=== PATIENT | male | born 1970 | race Caucasian/White ===

== ENCOUNTER 2019-03-26 15:53 | Inpatient (IN) ==
--- NOTE | 2019-03-26 16:24 | Emergency Department Note ---
Disposition Clinical Impression: Suicidal ideation Disposition: Admitted As Inpatient Condition: Good Psych HPI - General Chief Complaint: ED Psychiatric Symptoms Stated Complaint: SI Time Seen by Provider: 03/26/19 16:04 Source: patient - Related Data Home Medications Medication Instructions Recorded Confirmed Albuterol Sulfate [Albuterol 2 puff IH Q4HR PRN 03/26/19 03/26/19 Inhaler] Amitriptyline [Elavil] 25 mg PO HS 03/26/19 03/26/19 BuPROPion SR (12 HR) [Wellbutrin 150 mg PO BID 03/26/19 03/26/19 SR] Gabapentin [Neurontin] 300 mg PO TID 03/26/19 03/26/19 Meloxicam [Mobic] 7.5 mg PO DAILY PRN 03/26/19 03/26/19 Allergies Allergy/AdvReac Type Severity Reaction Status Date / Time No Known Allergies Allergy Verified 01/01/19 13:10 Past Medical History - Past Medical History Medical history: Reports: other Surgical history: Reports: no surgical history Psychiatric history: Reports: depression - Social History Smoking Status: Current every day smoker Smokeless Tobacco Status: No Alcohol use: Reports: occasionally Drug use: Reports: none Physical Exam - General Limitations: no limitations General appearance: alert, in no apparent distress Course Vital Signs Temperature 98.2 F 03/26/19 15:55 Pulse Rate 115 03/26/19 15:55 Respiratory Rate 20 03/26/19 15:55 Blood Pressure 142/87 03/26/19 15:55 O2 Sat by Pulse Oximetry 97 03/26/19 15:55 Temperature 97.6 F 03/27/19 20:44 Pulse Rate 81 03/27/19 20:44 Respiratory Rate 16 03/27/19 20:44 Blood Pressure 121/80 03/27/19 20:44 O2 Sat by Pulse Oximetry 97 03/27/19 20:44 Oxygen Delivery Oxygen Delivery Room Air Psych - Lab Data Result diagrams: 03/26/19 16:25 03/26/19 16:25 Lab Results 03/26/19 03/26/19 03/26/19 Range/Units 16:25 16:25 16:30 WBC 14.8 H (4.3-11.1) K/mcL RBC 4.91 (4.19-5.50) M/mcL Hgb 15.3 (12.9-16.9) g/dL Hct 45.2 (37.5-50.1) % MCV 92.1 (83.0-100.0) fL MCH 31.2 (28.0-33.3) pg MCHC 33.8 (31.6-35.5) g/dL RDW 13.1 (11.5-14.5) % Plt Count 344 (140-400) K/mcL MPV 12.2 (9.4-12.4) fL Immature Gran % 0.3 (0-4) % Seg Neutrophils % 61.1 % Lymphocytes % 29.2 % Monocytes % 6.0 % Eosinophils % 2.4 % Basophils % 1.0 % Neutrophils # 9.0 H (1.6-8.9) K/mcL Lymphocytes # 4.3 (0.6-4.6) K/mcL Monocytes # 0.9 (0.0-1.3) K/mcL Eosinophils # 0.4 (0.0-0.6) K/mcL Basophils # 0.2 (0.0-0.2) K/mcL Sodium 139 (136-145) mEq/L Potassium 3.6 (3.5-5.1) mEq/L Chloride 104 (98-107) mEq/L Carbon Dioxide 26 (23-29) mEq/L BUN 13 (6-20) mg/dL Creatinine 0.97 (0.70-1.30) mg/dL Est GFR ( Amer) > 60 (> 60) Est GFR (Non-Af Amer) > 60 (> 60) BUN/Creatinine Ratio 13 (6-26) Glucose 95 (70-105) mg/dL Calculated Osmolality 288 (280-300) Calcium 10.0 (8.6-10.3) mg/dL Total Bilirubin 0.7 (0.3-1.0) mg/dL Direct Bilirubin 0.1 (0.0-0.2) mg/dL Indirect Bilirubin 0.6 (0.0-1.2) mg/dL AST 18 (13-39) Units/L ALT 13 (7-52) Units/L Alkaline Phosphatase 56 (34-104) Units/L Serum Total Protein 7.8 (6.4-8.9) g/dL Albumin 4.8 (3.5-5.7) g/dL Globulin 3.0 (2.4-3.5) g/dL Albumin/Globulin Ratio 1.6 (1.1-2.2) Urine Color Yellow (Yellow) Urine Clarity Clear (Clear) Urine pH 5.5 (5.0-8.0) pH Units Ur Specific [place] 1.020 (1.010-1.025) Urine Protein Negative (Neg-Trace) mg/dL Urine Glucose (UA) Normal (Normal) mg/dL Urine Ketones Negative (Negative) mg/dL Urine Blood Negative (Negative) Urine Nitrite Negative (Negative) Urine Bilirubin Negative (Negative) Urine Urobilinogen Normal (Normal) mg/dL Ur Leukocyte Esterase Negative (Negative) Salicylates < 2.5 L (15.0-30.0) mg/dL Urine Opiates Screen (Trihln=667) ng/mL Acetaminophen < 10 L (10-20) mcg/mL Ur Barbiturates Screen (Crdvev=102) ng/mL Ur Phencyclidine Scrn (Cutoff=25) ng/mL Ur Amphetamines Screen (Najeju=4787) ng/mL U Benzodiazepines Scrn (Vglweo=406) ng/mL Urine Cocaine Screen (Cutoff= 300) ng/mL U Marijuana (THC) Screen (Cutoff = 50) ng/mL Ur Drug Screen Interp Ethyl Alcohol < 10 (Less than 10) mg/dL 03/26/19 Range/Units 16:30 WBC (4.3-11.1) K/mcL RBC (4.19-5.50) M/mcL Hgb (12.9-16.9) g/dL Hct (37.5-50.1) % MCV (83.0-100.0) fL MCH (28.0-33.3) pg MCHC (31.6-35.5) g/dL RDW (11.5-14.5) % Plt Count (140-400) K/mcL MPV (9.4-12.4) fL Immature Gran % (0-4) % Seg Neutrophils % % Lymphocytes % % Monocytes % % Eosinophils % % Basophils % % Neutrophils # (1.6-8.9) K/mcL Lymphocytes # (0.6-4.6) K/mcL Monocytes # (0.0-1.3) K/mcL Eosinophils # (0.0-0.6) K/mcL Basophils # (0.0-0.2) K/mcL Sodium (136-145) mEq/L Potassium (3.5-5.1) mEq/L Chloride (98-107) mEq/L Carbon Dioxide (23-29) mEq/L BUN (6-20) mg/dL Creatinine (0.70-1.30) mg/dL Est GFR ( Amer) (> 60) Est GFR (Non-Af Amer) (> 60) BUN/Creatinine Ratio (6-26) Glucose (70-105) mg/dL Calculated Osmolality (280-300) Calcium (8.6-10.3) mg/dL Total Bilirubin (0.3-1.0) mg/dL Direct Bilirubin (0.0-0.2) mg/dL Indirect Bilirubin (0.0-1.2) mg/dL AST (13-39) Units/L ALT (7-52) Units/L Alkaline Phosphatase (34-104) Units/L Serum Total Protein (6.4-8.9) g/dL Albumin (3.5-5.7) g/dL Globulin (2.4-3.5) g/dL Albumin/Globulin Ratio (1.1-2.2) Urine Color (Yellow) Urine Clarity (Clear) Urine pH (5.0-8.0) pH Units Ur Specific [place] (1.010-1.025) Urine Protein (Neg-Trace) mg/dL Urine Glucose (UA) (Normal) mg/dL Urine Ketones (Negative) mg/dL Urine Blood (Negative) Urine Nitrite (Negative) Urine Bilirubin (Negative) Urine Urobilinogen (Normal) mg/dL Ur Leukocyte Esterase (Negative) Salicylates (15.0-30.0) mg/dL Urine Opiates Screen Negative (Faojss=741) ng/mL Acetaminophen (10-20) mcg/mL Ur Barbiturates Screen Negative (Xovwzl=570) ng/mL Ur Phencyclidine Scrn Negative (Cutoff=25) ng/mL Ur Amphetamines Screen Negative (Filcmi=9373) ng/mL U Benzodiazepines Scrn Negative (Bijblk=412) ng/mL Urine Cocaine Screen Negative (Cutoff= 300) ng/mL U Marijuana (THC) Screen Negative (Cutoff = 50) ng/mL Ur Drug Screen Interp See Below Ethyl Alcohol (Less than 10) mg/dL Psychiatric Medical Clearance - Medical Clearance Checklist Medical History: No Social History Section defined Current Vitals: Last Vital Signs Temp 97.6 F 03/27/19 20:44 Pulse 81 03/27/19 20:44 Resp 16 03/27/19 20:44 BP 121/80 03/27/19 20:44 Pulse Ox 97 03/27/19 20:44 Abnormal Labs: Abnormal lab results WBC 14.8 K/mcL (4.3-11.1) H 03/26/19 16:25 9.0 K/mcL (1.6-8.9) H 03/26/19 16:25 Salicylates < 2.5 mg/dL (15.0-30.0) L 03/26/19 16:25 Acetaminophen < 10 mcg/mL (10-20) L 03/26/19 16:25 Statement of Medical Clearance: I have evaluated the patient, reviewed diagnostic information, and certify that the patient's medical condition is sufficiently stable that transfer to the psychiatric unit does not pose a significant risk of deterioration. Attestation Statement - Attestation Attestation: Resident Attestation: I examined this patient and my medical decision making was reviewed with the Resident Physician. I agree with the documented findings, disposition and treatment plan as described except to the extent set forth below. We independently had [id number] contact with the patient. Patient presented for evaluation of SI. Patient states he has not slept in 3 days. Patient is undergoing a divorce, kids will talk to him, patient states that he is lost his truck and is about to be homeless. Patient has been having thoughts of wanting to kill himself including with either guns or pills. General appearance: NAD, conversant Eyes: anicteric sclerae, moist conjunctivae HENT: Atraumatic; oropharynx clear with moist mucous membranes Neck: Normal appearance; Trachea midline Chest: Symmetrical chest rise; No respiratory distress Extremities: No peripheral edema or extremity tenderness Skin: Normal temperature, turgor and texture; no rash, ulcers or subcutaneous nodules Psych: Appropriate mood and affect Neuro: Awake and alert
--- NOTE | 2019-03-26 16:25 | Emergency Department Note ---
Disposition Clinical Impression: Suicidal ideation Disposition: Admitted As Inpatient Condition: Good Referrals: NONE,PCP [Primary Care Provider] - Time of Disposition: 20:35 Psych HPI - General Chief Complaint: ED Psychiatric Symptoms Stated Complaint: SI Time Seen by Provider: 03/26/19 16:04 Source: patient Mode of arrival: ambulatory Limitations: no limitations Nursing Notes Reviewed: Yes Vital Signs Reviewed: Yes - History of Present Illness HPI Narrative: 48-year-old male presents to the emergency department for suicidal ideations. Patient states a few months ago his filed for divorce after he got her cheating with someone else. There were now undergoing a custody fuentes as well said since then he has been very depressed. He has lost everything including his job money in-house. Partially 2 weeks ago he said he took an unknown amount of pills unknown exactly what pill was preceded his vomiting back up and had no ill effects from that. He was not seen in the hospital after that event. Her last few days he has became more depressed and having more suicidal thoughts were says he is deciding whether or not he wants to take more pills or shoot himself in the head. Did have access to a handgun but his brother came to his house yesterday and took the gun away. He promises brother that he would come here to be evaluated as they felt like he is not in a normal state of mind and needs some help. Patient agrees with that as well. He does not have any homicidal wrist. Patient otherwise has no other complaints at this time. This again with N for pain otherwise no other medications. - Related Data Home Medications Medication Instructions Recorded Confirmed Albuterol Sulfate [Albuterol 2 puff IH Q4HR PRN 03/26/19 03/26/19 Inhaler] Amitriptyline [Elavil] 25 mg PO HS 03/26/19 03/26/19 BuPROPion SR (12 HR) [Wellbutrin 150 mg PO BID 03/26/19 03/26/19 SR] Gabapentin [Neurontin] 300 mg PO TID 03/26/19 03/26/19 Meloxicam [Mobic] 7.5 mg PO DAILY PRN 03/26/19 03/26/19 Allergies Allergy/AdvReac Type Severity Reaction Status Date / Time No Known Allergies Allergy Verified 01/01/19 13:10 All systems ED: reviewed and negative except as stated. Review of Systems: As Per HPI Past Medical History - Past Medical History Attestation: Yes The following information was validated with the patient. Source: patient Medical history: Reports: other Surgical history: Reports: no surgical history Psychiatric history: Reports: depression - Social History Smoking Status: Current every day smoker Smokeless Tobacco Status: No Alcohol use: Reports: occasionally Drug use: Reports: none Physical Exam - General Limitations: no limitations General appearance: alert, in no apparent distress - Head Head exam: atraumatic, normocephalic, normal inspection - Eye Eye exam: Present: normal appearance, PERRL, EOMI - ENT ENT exam: normal exam, normal oropharynx, mucous membranes moist - Neck Neck exam: Present: normal inspection, full ROM, trachea midline - Chest Chest inspection: Present: normal inspection, symmetric chest wall rise - Respiratory Respiratory exam: Present: normal lung sounds bilaterally - Cardiovascular Cardiovascular exam: Present: regular rate, normal rhythm, normal heart sounds - Abdominal Exam Abdominal exam: Present: soft, Non-Tender, normal bowel sounds. Absent: tenderness, distention, guarding, rebound, rigidity - Extremities Exam Extremities exam: Present: normal inspection, full ROM. Absent: tenderness, pedal edema - Back Exam Back exam: Present: normal inspection, full ROM. Absent: tenderness - Neurological Exam Neurological exam: Present: alert, oriented X3 - Psychiatric Psychiatric exam: Present: suicidal ideation. Absent: homicidal ideation - Skin Skin exam: Present: warm, dry, intact, normal color Course Course Narrative: Will get psychiatric medical clearance. If patient is medically cleared we will contact the psychiatric unit to come evaluate patient for further disposition and plan. Patient stable at this time. He is pink slipped. Vital Signs Temperature 98.2 F 03/26/19 15:55 Pulse Rate 115 03/26/19 15:55 Respiratory Rate 20 03/26/19 15:55 Blood Pressure 142/87 03/26/19 15:55 O2 Sat by Pulse Oximetry 97 03/26/19 15:55 Temperature 98.2 F 03/26/19 20:23 Pulse Rate 80 03/26/19 20:23 Respiratory Rate 16 03/26/19 20:23 Blood Pressure 125/88 03/26/19 20:23 O2 Sat by Pulse Oximetry 97 03/26/19 20:23 Oxygen Delivery Oxygen Delivery Room Air Psych - MDM Narrative Medical decision making narrative: Patient came here for suicidal ideations. Patient was originally medically cleared but he did have history of really pneumothorax a few months ago which did have treatment for it. Chest x-ray showed possible pleural effusion so we did get a CT of the chest which showed change in architecture in the right upper lobe but no signs of pneumothorax or effusions at this time. Patient does need to follow-up with his junior systems analyst in the outpatient setting. He was never hypoxic or tachycardic while here. He does not have any shortness of breath outside of his normal. Patient was medically cleared and psychiatry saw the patient and recommended admission for further evaluation. Patient is admitted to [facility] in stable condition. Chest X-Ray 03/26/19 17:05 IMPRESSION: Mild right pleural effusion versus pleural thickening. No conclusive pneumothorax identified. With continued clinical concern, advise CT for further evaluation. D/ / Layo Guerrero MD / Layo Guerrero MD Interpreting Provider: Laoy Guerrero MD Chest CT 03/26/19 18:16 IMPRESSION: No evidence of recurrent pneumothorax. New postsurgical changes in the right upper lung. D/ / Vamshi Barreto MD / Vamshi Barreto MD Interpreting Provider: Vamshi Barreto MD - Lab Data Result diagrams: 03/26/19 16:25 03/26/19 16:25 Lab Results 03/26/19 03/26/19 03/26/19 Range/Units 16:25 16:25 16:30 WBC 14.8 H (4.3-11.1) K/mcL RBC 4.91 (4.19-5.50) M/mcL Hgb 15.3 (12.9-16.9) g/dL Hct 45.2 (37.5-50.1) % MCV 92.1 (83.0-100.0) fL MCH 31.2 (28.0-33.3) pg MCHC 33.8 (31.6-35.5) g/dL RDW 13.1 (11.5-14.5) % Plt Count 344 (140-400) K/mcL MPV 12.2 (9.4-12.4) fL Immature Gran % 0.3 (0-4) % Seg Neutrophils % 61.1 % Lymphocytes % 29.2 % Monocytes % 6.0 % Eosinophils % 2.4 % Basophils % 1.0 % Neutrophils # 9.0 H (1.6-8.9) K/mcL Lymphocytes # 4.3 (0.6-4.6) K/mcL Monocytes # 0.9 (0.0-1.3) K/mcL Eosinophils # 0.4 (0.0-0.6) K/mcL Basophils # 0.2 (0.0-0.2) K/mcL Sodium 139 (136-145) mEq/L Potassium 3.6 (3.5-5.1) mEq/L Chloride 104 (98-107) mEq/L Carbon Dioxide 26 (23-29) mEq/L BUN 13 (6-20) mg/dL Creatinine 0.97 (0.70-1.30) mg/dL Est GFR ( Amer) > 60 (> 60) Est GFR (Non-Af Amer) > 60 (> 60) BUN/Creatinine Ratio 13 (6-26) Glucose 95 (70-105) mg/dL Calculated Osmolality 288 (280-300) Calcium 10.0 (8.6-10.3) mg/dL Total Bilirubin 0.7 (0.3-1.0) mg/dL Direct Bilirubin 0.1 (0.0-0.2) mg/dL Indirect Bilirubin 0.6 (0.0-1.2) mg/dL AST 18 (13-39) Units/L ALT 13 (7-52) Units/L Alkaline Phosphatase 56 (34-104) Units/L Serum Total Protein 7.8 (6.4-8.9) g/dL Albumin 4.8 (3.5-5.7) g/dL Globulin 3.0 (2.4-3.5) g/dL Albumin/Globulin Ratio 1.6 (1.1-2.2) Urine Color Yellow (Yellow) Urine Clarity Clear (Clear) Urine pH 5.5 (5.0-8.0) pH Units Ur Specific [place] 1.020 (1.010-1.025) Urine Protein Negative (Neg-Trace) mg/dL Urine Glucose (UA) Normal (Normal) mg/dL Urine Ketones Negative (Negative) mg/dL Urine Blood Negative (Negative) Urine Nitrite Negative (Negative) Urine Bilirubin Negative (Negative) Urine Urobilinogen Normal (Normal) mg/dL Ur Leukocyte Esterase Negative (Negative) Salicylates < 2.5 L (15.0-30.0) mg/dL Urine Opiates Screen (Kpohbo=190) ng/mL Acetaminophen < 10 L (10-20) mcg/mL Ur Barbiturates Screen (Nbowpj=786) ng/mL Ur Phencyclidine Scrn (Cutoff=25) ng/mL Ur Amphetamines Screen (Wqxvyq=1133) ng/mL U Benzodiazepines Scrn (Kluglk=123) ng/mL Urine Cocaine Screen (Cutoff= 300) ng/mL U Marijuana (THC) Screen (Cutoff = 50) ng/mL Ur Drug Screen Interp Ethyl Alcohol < 10 (Less than 10) mg/dL 03/26/19 Range/Units 16:30 WBC (4.3-11.1) K/mcL RBC (4.19-5.50) M/mcL Hgb (12.9-16.9) g/dL Hct (37.5-50.1) % MCV (83.0-100.0) fL MCH (28.0-33.3) pg MCHC (31.6-35.5) g/dL RDW (11.5-14.5) % Plt Count (140-400) K/mcL MPV (9.4-12.4) fL Immature Gran % (0-4) % Seg Neutrophils % % Lymphocytes % % Monocytes % % Eosinophils % % Basophils % % Neutrophils # (1.6-8.9) K/mcL Lymphocytes # (0.6-4.6) K/mcL Monocytes # (0.0-1.3) K/mcL Eosinophils # (0.0-0.6) K/mcL Basophils # (0.0-0.2) K/mcL Sodium (136-145) mEq/L Potassium (3.5-5.1) mEq/L Chloride (98-107) mEq/L Carbon Dioxide (23-29) mEq/L BUN (6-20) mg/dL Creatinine (0.70-1.30) mg/dL Est GFR ( Amer) (> 60) Est GFR (Non-Af Amer) (> 60) BUN/Creatinine Ratio (6-26) Glucose (70-105) mg/dL Calculated Osmolality (280-300) Calcium (8.6-10.3) mg/dL Total Bilirubin (0.3-1.0) mg/dL Direct Bilirubin (0.0-0.2) mg/dL Indirect Bilirubin (0.0-1.2) mg/dL AST (13-39) Units/L ALT (7-52) Units/L Alkaline Phosphatase (34-104) Units/L Serum Total Protein (6.4-8.9) g/dL Albumin (3.5-5.7) g/dL Globulin (2.4-3.5) g/dL Albumin/Globulin Ratio (1.1-2.2) Urine Color (Yellow) Urine Clarity (Clear) Urine pH (5.0-8.0) pH Units Ur Specific [place] (1.010-1.025) Urine Protein (Neg-Trace) mg/dL Urine Glucose (UA) (Normal) mg/dL Urine Ketones (Negative) mg/dL Urine Blood (Negative) Urine Nitrite (Negative) Urine Bilirubin (Negative) Urine Urobilinogen (Normal) mg/dL Ur Leukocyte Esterase (Negative) Salicylates (15.0-30.0) mg/dL Urine Opiates Screen Negative (Soxfjj=662) ng/mL Acetaminophen (10-20) mcg/mL Ur Barbiturates Screen Negative (Ayfvkh=654) ng/mL Ur Phencyclidine Scrn Negative (Cutoff=25) ng/mL Ur Amphetamines Screen Negative (Zmffvj=0219) ng/mL U Benzodiazepines Scrn Negative (Jywfjy=533) ng/mL Urine Cocaine Screen Negative (Cutoff= 300) ng/mL U Marijuana (THC) Screen Negative (Cutoff = 50) ng/mL Ur Drug Screen Interp See Below Ethyl Alcohol (Less than 10) mg/dL Psychiatric Medical Clearance - Medical Clearance Checklist Medical History: No Social History Section defined Current Vitals: Last Vital Signs Temp 98.2 F 03/26/19 20:23 Pulse 80 03/26/19 20:23 Resp 16 03/26/19 20:23 BP 125/88 03/26/19 20:23 Pulse Ox 97 03/26/19 20:23 Psychiatric Lab Panel: Drug Levels and Toxicity 03/26/19 03/26/19 16:25 16:30 Urine Opiates Screen Negative Acetaminophen < 10 L Ur Barbiturates Screen Negative Ur Phencyclidine Scrn Negative Ur Amphetamines Screen Negative U Benzodiazepines Scrn Negative Urine Cocaine Screen Negative U Marijuana (THC) Screen Negative Ethyl Alcohol < 10 Abnormal Labs: Abnormal lab results WBC 14.8 K/mcL (4.3-11.1) H 03/26/19 16:25 9.0 K/mcL (1.6-8.9) H 03/26/19 16:25 Salicylates < 2.5 mg/dL (15.0-30.0) L 03/26/19 16:25 Acetaminophen < 10 mcg/mL (10-20) L 03/26/19 16:25 Statement of Medical Clearance: I have evaluated the patient, reviewed diagnostic information, and certify that the patient's medical condition is sufficiently stable that transfer to the psychiatric unit does not pose a significant risk of deterioration.
[2019-03-26 16:39] LABS: Basophils # 0.2 K/mcL (0.0-0.2); Eosinophils # 0.4 K/mcL (0.0-0.6); Eosinophils % 2.4 %; Hematocrit 45.2 % (37.5-50.1); Hemoglobin 15.3 g/dL (12.9-16.9); Immature Granulocytes % 0.3 % (0-4); Lymphocytes # 4.3 K/mcL (0.6-4.6); Lymphocytes % 29.2 %; Mean Corpuscular HGB Conc 33.8 g/dL (31.6-35.5); Mean Corpuscular Hemoglobin 31.2 pg (28.0-33.3); Mean Corpuscular Volume 92.1 fL (83.0-100.0); Mean Platelet Volume 12.2 fL (9.4-12.4); Monocytes # 0.9 K/mcL (0.0-1.3); Platelet Count 344 K/mcL (140-400); Red Blood Count 4.91 M/mcL (4.19-5.50); Red Cell Distribution Width 13.1 % (11.5-14.5); Segmented Neutrophils % 61.1 %
[2019-03-26 16:51] LABS: Bilirubin,Urine Negative (Negative); Blood,Urine Negative (Negative); Clarity,Urine Clear (Clear); Color,Urine Yellow (Yellow); Glucose,Urine (UA) Normal (Normal); Ketones,Urine Negative (Negative); Leukocyte Esterase,Urine Negative (Negative); Nitrite,Urine Negative (Negative); PH,Urine 5.5 pH Units (5.0-8.0); Protein,Urine Negative (Neg-Trace); Urobilinogen,Urine Normal (Normal)
[2019-03-26 17:11] LABS: Acetaminophen < 10 mcg/mL (10-20); BUN/Creatinine Ratio 13 (6-26); Blood Urea Nitrogen 13 mg/dL (6-20); Carbon Dioxide 26 mEq/L (23-29); Chloride 104 mEq/L (98-107); Ethanol < 10 mg/dL (Less than 10); Glucose 95 mg/dL (70-105); Osmolality,Calculated 288 (280-300); Potassium 3.6 mEq/L (3.5-5.1); Salicylate < 2.5 mg/dL (15.0-30.0); Sodium 139 mEq/L (136-145); eGFR For Non-African Americans > 60 (> 60)
[2019-03-26 17:12] LABS: Amphetamine Screen,Urine Negative ng/mL (Cutoff=1000); Barbiturate Screen,Urine Negative ng/mL (Cutoff=200); Benzodiazepines Screen,Urine Negative ng/mL (Cutoff=200); Cannabinoid Screen,Urine Negative ng/mL (Cutoff = 50); Cocaine Screen,Urine Negative ng/mL (Cutoff= 300); Opiate Screen,Urine Negative ng/mL (Cutoff=300); Phencyclidine Screen,Urine Negative ng/mL (Cutoff=25)
[2019-03-26 17:32] LABS: Alanine Aminotransferase 13 Units/L (7-52); Albumin 4.8 g/dL (3.5-5.7); Albumin/Globulin Ratio 1.6 (1.1-2.2); Alkaline Phosphatase 56 Units/L (34-104); Aspartate Amino Transferase 18 Units/L (13-39); Bilirubin,Direct 0.1 mg/dL (0.0-0.2); Bilirubin,Indirect 0.6 mg/dL (0.0-1.2); Bilirubin,Total 0.7 mg/dL (0.3-1.0); Total Protein 7.8 g/dL (6.4-8.9)
[2019-03-26] MEDS ORDERED: Ibuprofen 400 MG TABLET PO PRN (19:41)
[2019-03-26] MEDS ORDERED: *HR* LORazepam 2 MG/ML VIAL IM PRN (19:41)
[2019-03-26] MEDS ORDERED: Mag Hydrox/Al Hydrox/Simeth 30 ML UDC PO PRN (19:41)
[2019-03-26] MEDS ORDERED: *HR* LORazepam 1 MG TABLET PO PRN (19:41)
[2019-03-26] MEDS ORDERED: MOM Conc 10 ML UD.LIQ PO PRN (19:41)
[2019-03-26] MEDS ORDERED: Haloperidol Lactate 5 MG/ML VIAL IM PRN (19:41)
[2019-03-26] MEDS ORDERED: BuPROPion SR (12 HR) 150 MG TABLET PO SCH (21:00)
[2019-03-26] MEDS: hydrOXYzine pamoate 25 MG CAPSULE PO PRN (21:16)
[2019-03-26] MEDS: traZODone 50 MG TABLET PO PRN (21:17)
[2019-03-26] MEDS: Gabapentin 300 MG CAPSULE PO SCH (22:09)
--- NOTE | 2019-03-27 09:04 | Psychiatry History & Physical ---
Date of Encounter: 03/27/19 Time of Encounter: 08:30 History of Present Illness Patient Stated Chief Complaint: "I wanted to kill myself" Medicare Admission Attestation: For traditional Medicare patients the provided hospital inpatient services are reasonable and necessary and in the case of services not specified as inpatient-only under 42 CFR 419.22 (n), that they are appropriately provided as inpatient services in accordance 42 CFR 412.3. For Critical Access Hospital the patient may reasonably be expected to be discharged or transferred to a hospital within 96 hours after admission to the Critical Access Hospital. Admitted From: Emergency Dept Plans for Post Hospital Care: Home History of Present Illness: Mr. Simental is a 48 year old male who presented to the emergency room with s uicidal ideations and depression for 4 months since he began the divorce proceedings from his . He said that he gave his home to his so that she could stay there with his children and he has been couch surfing since then. He said he feels as though everything is hit it once. His dog , he lost his car he reports that things have gotten worse since he had a fight with his daughter a few weeks ago. He said that 3 weeks ago he took extra gabapentin in a suicide attempt but threw it up. He has sad mood, decreased interest, feelings of guilt and worthlessness, low energy, impaired concentration, decreased appetite. There is no psychosis. No history of stephanie. No homicidal ideations. Past Med Surg Social Fam HX - Past Medical History Medical history: other (Spontaneous pneumothorax requiring chest tube) - Past Psychiatric History Psychiatric history: Reports: prior suicide attempt Past psychiatric history details: Patient says that he has never seen an outpatient therapist or psychiatrist. He has never been in a psychiatric hospital before. As stated above he had a prior suicide attempt 3 weeks ago by overdose on gabapentin. He said that his primary care physician started him on Wellbutrin 150 twice a day about 4 weeks ago and then added amitriptyline 50 mg at bedtime one week ago. Family psychiatric history: Yes Family Psychiatric History Details: His mother has dementia with psychosis. Family History of Suicide: Completed Family Suicide History Details: His cousin completed suicide. - Past Surgical History Surgical History: no surgical history - Social History Smoking Status: Current every day smoker Packs per day: 1 Smokeless Tobacco Status: No Alcohol use: occasionally Drug use: none Occupational status: employed, disabled Current living situation: Other (Surfing) Activity Level: Independent ambulation Recent Out of Country Travel Within the Last 8 Weeks: No Exposure or Possible Exposure to Illness During Travel: No Additional social history: He reports he has been couch surfing with friends. He is but in the process of divorce. He has 2 children ages 13 and 11. He is employed by [employer] but is on short-term disability due to his recovery from his spontaneous pneumothorax. Medications & Allergies Albuterol Sulfate [Albuterol Inhaler] 2 puff IH Q4HR PRN 03/26/19 [History] Amitriptyline [Elavil] 25 mg PO HS 03/26/19 [History] BuPROPion SR (12 HR) [Wellbutrin SR] 150 mg PO BID 03/26/19 [History] Gabapentin [Neurontin] 300 mg PO TID 03/26/19 [History] Meloxicam [Mobic] 7.5 mg PO DAILY PRN 03/26/19 [History] Allergy/AdvReac Type Severity Reaction Status Date / Time No Known Allergies Allergy Verified 01/01/19 13:10 Review of Systems Constitutional: Denies: fever Eyes: Denies: eye pain Ears, Nose, Throat: Denies: ear pain Cardiovascular: Denies: chest pain Respiratory: Denies: cough Gastrointestinal: Denies: abdominal pain Genitourinary male: Denies: urgency Musculoskeletal: Reports: myalgia Integumentary: Denies: rash Neurological: Reports: paresthesias (At site of pneumothorax) Psychiatric: Reports: depression, anxiety, abnormal sleep pattern, suicidal ideation, change in appetite, difficulty concentrating, hopelessness. Denies: homicidal ideation, auditory hallucinations, visual hallucinations Endocrine: Reports: fatigue Hematologic/Lymphatic: Denies: easy bleeding Allergic/Immunologic: Denies: facial swelling Exam - HEENT Head exam IM: Present: atraumatic Eye exam IM: Present: normal appearance ENT exam IM: Present: mucous membranes moist - Neurological Neurological exam: Present: CN II-XII intact (Grossly) - Respiratory Respiratory exam IM: Absent: respiratory distress - GI/Abdominal GI/Abdominal exam IM: Present: no peritoneal signs - Extremities Extremities exam IM: Present: full ROM - Skin Skin exam IM: Absent: cyanosis - Additional Information Additional Information: Long limbs and Marfanoid facial features - Constitutional Vitals: Temp Pulse Resp BP Pulse Ox 98.2 F 80 16 125/88 97 03/26/19 20:23 03/26/19 20:23 03/26/19 20:23 03/26/19 20:23 03/26/19 20:23 General appearance: age & developmentally appropriate, thin - Musculoskeletal Gait: slow Station: stooped Strength & Tone: normal for patient - Psychiatric Patient Orientation: Yes Person, Yes Time, Yes Place Level of alertness: Alert Behavior: tearful Psychomotor activity: Slowed Eye Contact: Minimal Contact Mood Description: Depressed Patient description of mood: "Depressed" Affect description: dysphoric Speech Volume: Soft/Quiet Speech pattern: slowed Language & Vocabulary: consistent with education Thought Process: Linear, Goal Oriented Thought Content: Yes Suicidal ideation, No Homicidal ideation Perceptual Disturbances: No Auditory hallucinations, No Visual hallucinations Attention Span Ability: Capable of Focused Attention Memory Description: Grossly Intact Patient Reliability: Reliable Historian Fund of knowledge: Yes abstraction ability, Yes average, Yes aware of current events Intelligence Estimate: Average Judgment: Limited Insight: Partial Results - Drug Levels and Toxicology Drug Levels and Toxicology: Drug Levels and Toxicity 03/26/19 03/26/19 16:25 16:30 Urine Opiates Screen Negative Acetaminophen < 10 L Ur Barbiturates Screen Negative Ur Phencyclidine Scrn Negative Ur Amphetamines Screen Negative U Benzodiazepines Scrn Negative Urine Cocaine Screen Negative U Marijuana (THC) Screen Negative Ethyl Alcohol < 10 - Labs Labs: Laboratory Last Values WBC 14.8 K/mcL (4.3-11.1) H 03/26/19 16:25 RBC 4.91 M/mcL (4.19-5.50) 03/26/19 16:25 Hgb 15.3 g/dL (12.9-16.9) 03/26/19 16:25 Hct 45.2 % (37.5-50.1) 03/26/19 16:25 MCV 92.1 fL (83.0-100.0) 03/26/19 16:25 MCH 31.2 pg (28.0-33.3) 03/26/19 16:25 MCHC 33.8 g/dL (31.6-35.5) 03/26/19 16:25 RDW 13.1 % (11.5-14.5) 03/26/19 16:25 Plt Count 344 K/mcL (140-400) 03/26/19 16:25 MPV 12.2 fL (9.4-12.4) 03/26/19 16:25 Immature Gran % 0.3 % (0-4) 03/26/19 16:25 Seg Neutrophils % 61.1 % 03/26/19 16:25 29.2 % 03/26/19 16:25 6.0 % 03/26/19 16:25 2.4 % 03/26/19 16:25 1.0 % 03/26/19 16:25 9.0 K/mcL (1.6-8.9) H 03/26/19 16:25 4.3 K/mcL (0.6-4.6) 03/26/19 16:25 0.9 K/mcL (0.0-1.3) 03/26/19 16:25 0.4 K/mcL (0.0-0.6) 03/26/19 16:25 0.2 K/mcL (0.0-0.2) 03/26/19 16:25 Sodium 139 mEq/L (136-145) 03/26/19 16:25 Potassium 3.6 mEq/L (3.5-5.1) 03/26/19 16:25 Chloride 104 mEq/L (98-107) 03/26/19 16:25 Carbon Dioxide 26 mEq/L (23-29) 03/26/19 16:25 BUN 13 mg/dL (6-20) 03/26/19 16:25 0.97 mg/dL (0.70-1.30) 03/26/19 16:25 Est GFR ( Amer) > 60 (> 60) 03/26/19 16:25 Est GFR (Non-Af Amer) > 60 (> 60) 03/26/19 16:25 13 (6-26) 03/26/19 16:25 Glucose 95 mg/dL (70-105) 03/26/19 16:25 288 (280-300) 03/26/19 16:25 Calcium 10.0 mg/dL (8.6-10.3) 03/26/19 16:25 0.7 mg/dL (0.3-1.0) 03/26/19 16:25 0.1 mg/dL (0.0-0.2) 03/26/19 16:25 0.6 mg/dL (0.0-1.2) 03/26/19 16:25 AST 18 Units/L (13-39) 03/26/19 16:25 ALT 13 Units/L (7-52) 03/26/19 16:25 56 Units/L (34-104) 03/26/19 16:25 7.8 g/dL (6.4-8.9) 03/26/19 16:25 4.8 g/dL (3.5-5.7) 03/26/19 16:25 3.0 g/dL (2.4-3.5) 03/26/19 16:25 1.6 (1.1-2.2) 03/26/19 16:25 Yellow (Yellow) 03/26/19 16:30 Clear (Clear) 03/26/19 16:30 5.5 pH Units (5.0-8.0) 03/26/19 16:30 Ur Specific [place] 1.020 (1.010-1.025) 03/26/19 16:30 Negative mg/dL (Neg-Trace) 03/26/19 16:30 Normal mg/dL (Normal) 03/26/19 16:30 Negative mg/dL (Negative) 03/26/19 16:30 Negative (Negative) 03/26/19 16:30 Negative (Negative) 03/26/19 16:30 Negative (Negative) 03/26/19 16:30 Normal mg/dL (Normal) 03/26/19 16:30 Ur Leukocyte Esterase Negative (Negative) 03/26/19 16:30 Salicylates < 2.5 mg/dL (15.0-30.0) L 03/26/19 16:25 Negative ng/mL (Zvxqlu=640) 03/26/19 16:30 Acetaminophen < 10 mcg/mL (10-20) L 03/26/19 16:25 Ur Barbiturates Screen Negative ng/mL (Hxuftm=688) 03/26/19 16:30 Ur Phencyclidine Scrn Negative ng/mL (Cutoff=25) 03/26/19 16:30 Ur Amphetamines Screen Negative ng/mL (Zprcls=0866) 03/26/19 16:30 U Benzodiazepines Scrn Negative ng/mL (Wjtckh=447) 03/26/19 16:30 Negative ng/mL (Cutoff= 300) 03/26/19 16:30 U Marijuana (THC) Screen Negative ng/mL (Cutoff = 50) 03/26/19 16:30 Ur Drug Screen Interp See Below 03/26/19 16:30 Ethyl Alcohol < 10 mg/dL (Less than 10) 03/26/19 16:25 - Impressions Impressions Chest X-Ray 03/26/19 17:05 IMPRESSION: Mild right pleural effusion versus pleural thickening. No conclusive pneumothorax identified. With continued clinical concern, advise CT for further evaluation. D/ / Layo Guerrero MD / Layo Guerrero MD Interpreting Provider: Layo Guerrero MD Chest CT 03/26/19 18:16 IMPRESSION: No evidence of recurrent pneumothorax. New postsurgical changes in the right upper lung. D/ / Vamshi Barreto MD / Vamshi Barreto MD Interpreting Provider: Vamshi Barreto MD Assessment and Plan (1) Depression Current visit: Yes Status: Acute Plan: Admit inpatient for safety and stabilization, Close observation, Suicide Precautions per unit protocol, Encourage participation in unit milieu, Group Therapy, Monitor sleep, Monitor appetite Additional Plan: Change Wellbutrin XL to 300 mg every morning. Consider further increase to 450 mg a day. Discontinue Elavil and changed to Remeron 7.5 mg at bedtime for further management of depression and insomnia. Encourage group attendance. Reviewed Interval hx Review any current labs Pt had an opportunity to ask questions and discuss current treatment plan. Supportive therapy was provided Pt encouraged to consider group or individual therapy Pt was in agreement with treatment plan. Pt was educated on the risks benefits and side effects of current medications and alternatives as well as the risks and benefits of no medication. AIMS = 0 Risks, benefits, side effects, alternatives discussed w/pt: Yes Patient agreeable to treatment: Yes Plans for Post Hospital Care: Home Estimated Length of Stay (Days): 4 Qualifiers: Depression Type: major depressive disorder Major depression recurrence: recurrent Active/Remission status: currently active Major depression episode severity: severe Psychotic features: without psychotic features Qualified Code(s): F33.2 - Major depressive disorder, recurrent severe without psychotic features
[2019-03-27] MEDS: BuPROPion XL (24 HR) 150 MG TABLET PO SCH (09:55)
[2019-03-27] MEDS: Gabapentin 300 MG CAPSULE PO SCH (10:06)
[2019-03-27] MEDS: Gabapentin 300 MG CAPSULE PO PRN ×2 (11:49→19:47)
--- NOTE | 2019-03-27 17:40 | Electrocardiograph Report ---
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
[2019-03-27] MEDS: traZODone 50 MG TABLET PO PRN (20:58)
[2019-03-27] MEDS: hydrOXYzine pamoate 25 MG CAPSULE PO PRN (20:58)
[2019-03-27] MEDS: Mirtazapine 15 MG TABLET PO SCH (20:58)
[2019-03-28] MEDS: BuPROPion XL (24 HR) 150 MG TABLET PO SCH (08:50)
[2019-03-28] MEDS: Nicotine 2 MG GUM BC PRN ×2 (09:04→12:21)
[2019-03-28] MEDS: Gabapentin 300 MG CAPSULE PO PRN ×2 (09:04→18:19)
--- NOTE | 2019-03-28 09:34 | Psychiatry Progress Note ---
Date of Encounter: 03/28/19 Time of Encounter: 09:32 Subjective Interval history: Patient doing very well. He has talked with a friend of his as well as one of the nurses and is more understanding of his daughter's perspective on the divorce. He also understands now how much it would hurt the children if he ever were to kill himself. He is tolerating the medications. Since his mood is good. No suicidal thoughts, no homicidal thoughts. He is future oriented. No hallucinations. He is engaged in group and has good hygiene. Review of Systems Psychiatric: Reports: depression. Denies: suicidal ideation, homicidal ideation, auditory hallucinations, visual hallucinations Results - Vital Signs Vital Signs: Temp Pulse Resp BP Pulse Ox 98.2 F 87 16 111/73 96 03/28/19 09:00 03/28/19 09:00 03/28/19 09:00 03/28/19 09:00 03/28/19 09:00 - Impressions ITS Impressions Chest X-Ray 03/26/19 17:05 IMPRESSION: Mild right pleural effusion versus pleural thickening. No conclusive pneumothorax identified. With continued clinical concern, advise CT for further evaluation. D/ / Layo Guerrero MD / Layo Guerrero MD Interpreting Provider: Layo Guerrero MD Chest CT 03/26/19 18:16 IMPRESSION: No evidence of recurrent pneumothorax. New postsurgical changes in the right upper lung. D/ / Vamshi Barreto MD / Vamshi Barreto MD Interpreting Provider: Vamshi Barreto MD Assessment and Plan (1) Depression Current visit: Yes Status: Acute Plan: Continue hospitalization, Close observation, Suicide Precautions per unit protocol, Encourage participation in unit milieu, Group Therapy, Monitor sleep, Monitor appetite Additional Plan: Continue current medications. Therapists working on outpatient plans. Encourage group attendance. Risks, benefits, side effects, alternatives discussed w/pt: Yes Patient agreeable to treatment: Yes Qualifiers: Depression Type: major depressive disorder Major depression recurrence: recurrent Active/Remission status: currently active Major depression episode severity: severe Psychotic features: without psychotic features Qualified Code(s): F33.2 - Major depressive disorder, recurrent severe without psychotic features Consult Discharge Plan - Plan Referrals: NONE,PCP [Primary Care Provider] - Psychiatry Exam - Constitutional Vitals: Temp Pulse Resp BP Pulse Ox 98.2 F 87 16 111/73 96 03/28/19 09:00 03/28/19 09:00 03/28/19 09:00 03/28/19 09:00 03/28/19 09:00 General appearance: age & developmentally appropriate, well-groomed, well- nourished - Musculoskeletal Gait: normal Station: relaxed Strength & Tone: normal for patient - Psychiatric Patient Orientation: Yes Person, Yes Time, Yes Place Level of alertness: Alert Behavior: calm, cooperative Psychomotor activity: Normal Eye Contact: Maintains Eye Contact Mood Description: Euthymic/stable Patient description of mood: Okay Affect description: congruent with mood, full range Speech Volume: Normal Speech pattern: normal rate, normal rhythm, normal tone, fluent, spontaneous Language & Vocabulary: consistent with education Thought Process: Linear, Goal Oriented Thought Content: No Suicidal ideation, No Homicidal ideation, No Overt delusions Perceptual Disturbances: No Auditory hallucinations, No Visual hallucinations Attention Span Ability: Capable of Focused Attention Memory Description: Grossly Intact Patient Reliability: Reliable Historian Fund of knowledge: Yes abstraction ability, Yes aware of current events Intelligence Estimate: Average Judgment: Good Insight: Full
[2019-03-28] MEDS: hydrOXYzine pamoate 25 MG CAPSULE PO PRN (21:33)
[2019-03-28] MEDS: traZODone 50 MG TABLET PO PRN (21:33)
[2019-03-28] MEDS: Mirtazapine 15 MG TABLET PO SCH (21:33)
--- NOTE | 2019-03-29 06:46 | Discharge Summary ---
Date of Encounter: 03/29/19 Time of Encounter: 06:44 Diagnosis - Discharge Diagnosis (1) Depression Status: Acute Qualifiers: Depression Type: major depressive disorder Major depression recurrence: r ecurrent Active/Remission status: currently active Major depression episode severity: severe Psychotic features: without psychotic features Qualified Code(s): F33.2 - Major depressive disorder, recurrent severe without psychotic features Medications - Discharge Medications Prescriptions: hydrOXYzine pamoate [HydrOXYzine Pamoate] 25 mg PO TID PRN #60 capsule PRN Reason: Anxiety Mirtazapine [Remeron] 7.5 mg PO HS #15 tablet traZODone [TraZODone] 50 mg PO HS PRN #30 tablet PRN Reason: Insomnia BuPROPion XL (24 HR) [Wellbutrin Xl] 300 mg PO DAILY #30 tab.er.24h Albuterol Sulfate [Albuterol Inhaler] 2 puff IH Q4HR PRN 03/26/19 [History] Gabapentin [Neurontin] 300 mg PO TID 03/26/19 [History] Meloxicam [Mobic] 7.5 mg PO DAILY PRN 03/26/19 [History] BuPROPion XL (24 HR) [Wellbutrin Xl] 300 mg PO DAILY #30 tab.er.24h 03/29/19 [Rx] Mirtazapine [Remeron] 7.5 mg PO HS #15 tablet 03/29/19 [Rx] hydrOXYzine pamoate [HydrOXYzine Pamoate] 25 mg PO TID PRN #60 capsule 03/29/19 [Rx] traZODone [TraZODone] 50 mg PO HS PRN #30 tablet 03/29/19 [Rx] Allergy/AdvReac Type Severity Reaction Status Date / Time No Known Allergies Allergy Verified 01/01/19 13:10 Results Procedures and tests throughout hospitalization: Completed Lab Orders Category Date Time Status Acetaminophen Stat Lab 03/26/19 16:25 Completed Basic Metabolic Panel Stat Lab 03/26/19 16:25 Completed Complete Blood Count [HEME] Stat Lab 03/26/19 16:25 Completed Drug Screen, Urine [UCHEM] Stat Lab 03/26/19 16:30 Completed Ethanol Stat Lab 03/26/19 16:25 Completed Hepatic Panel Stat Lab 03/26/19 16:25 Completed Salicylate Stat Lab 03/26/19 16:25 Completed Urinalysis reflex Microscopic [URIN] Stat Lab 03/26/19 16:30 Completed Completed Imaging Orders Category Date Time Status CT chest wo con [CT] Stat Cat Scan 03/26/19 18:16 Completed XR chest 1V portable [XR] Stat Exams 03/26/19 17:05 Completed Laboratory Results - last 72 hr 03/26/19 03/26/19 03/26/19 16:25 16:25 16:30 WBC 14.8 H RBC 4.91 Hgb 15.3 Hct 45.2 MCV 92.1 MCH 31.2 MCHC 33.8 RDW 13.1 Plt Count 344 MPV 12.2 Immature Gran % 0.3 Seg Neutrophils % 61.1 Lymphocytes % 29.2 Monocytes % 6.0 Eosinophils % 2.4 Basophils % 1.0 Neutrophils # 9.0 H Lymphocytes # 4.3 Monocytes # 0.9 Eosinophils # 0.4 Basophils # 0.2 Sodium 139 Potassium 3.6 Chloride 104 Carbon Dioxide 26 BUN 13 Creatinine 0.97 Est GFR ( Amer) > 60 Est GFR (Non-Af Amer) > 60 BUN/Creatinine Ratio 13 Glucose 95 Calculated Osmolality 288 Calcium 10.0 Total Bilirubin 0.7 Direct Bilirubin 0.1 Indirect Bilirubin 0.6 AST 18 ALT 13 Alkaline Phosphatase 56 Serum Total Protein 7.8 Albumin 4.8 Globulin 3.0 Albumin/Globulin Ratio 1.6 Urine Color Yellow Urine Clarity Clear Urine pH 5.5 Ur Specific [place] 1.020 Urine Protein Negative Urine Glucose (UA) Normal Urine Ketones Negative Urine Blood Negative Urine Nitrite Negative Urine Bilirubin Negative Urine Urobilinogen Normal Ur Leukocyte Esterase Negative Salicylates < 2.5 L Urine Opiates Screen Acetaminophen < 10 L Ur Barbiturates Screen Ur Phencyclidine Scrn Ur Amphetamines Screen U Benzodiazepines Scrn Urine Cocaine Screen U Marijuana (THC) Screen Ur Drug Screen Interp Ethyl Alcohol < 10 03/26/19 16:30 WBC RBC Hgb Hct MCV MCH MCHC RDW Plt Count MPV Immature Gran % Seg Neutrophils % Lymphocytes % Monocytes % Eosinophils % Basophils % Neutrophils # Lymphocytes # Monocytes # Eosinophils # Basophils # Sodium Potassium Chloride Carbon Dioxide BUN Creatinine Est GFR ( Amer) Est GFR (Non-Af Amer) BUN/Creatinine Ratio Glucose Calculated Osmolality Calcium Total Bilirubin Direct Bilirubin Indirect Bilirubin AST ALT Alkaline Phosphatase Serum Total Protein Albumin Globulin Albumin/Globulin Ratio Urine Color Urine Clarity Urine pH Ur Specific [place] Urine Protein Urine Glucose (UA) Urine Ketones Urine Blood Urine Nitrite Urine Bilirubin Urine Urobilinogen Ur Leukocyte Esterase Salicylates Urine Opiates Screen Negative Acetaminophen Ur Barbiturates Screen Negative Ur Phencyclidine Scrn Negative Ur Amphetamines Screen Negative U Benzodiazepines Scrn Negative Urine Cocaine Screen Negative U Marijuana (THC) Screen Negative Ur Drug Screen Interp See Below Ethyl Alcohol Provider Date of admission: 03/26/19 18:24 Primary care physician: PCP NONE Consults: 03/26/19 20:52 Consult to Pastoral Services [CONS] Routine Comment: Discharging clinician: Juli Stover Psychiatry Exam - Constitutional Vitals: Temp Pulse Resp BP Pulse Ox 98.7 F 66 18 122/81 98 03/28/19 21:00 03/28/19 21:00 03/28/19 21:00 03/28/19 21:00 03/28/19 21:00 General appearance: age & developmentally appropriate, well-groomed, well- nourished - Musculoskeletal Gait: normal Station: relaxed Strength & Tone: normal for patient - Psychiatric Patient Orientation: Yes Person, Yes Time, Yes Place Level of alertness: Alert Behavior: calm, cooperative Psychomotor activity: Normal Eye Contact: Maintains Eye Contact Mood Description: Euthymic/stable Patient description of mood: Good Affect description: congruent with mood, full range Speech Volume: Normal Speech pattern: normal rate, normal rhythm, normal tone, fluent, spontaneous Language & Vocabulary: consistent with education Thought Process: Linear, Goal Oriented Thought Content: No Suicidal ideation, No Homicidal ideation, No Overt delusions Perceptual Disturbances: No Auditory hallucinations, No Visual hallucinations Attention Span Ability: Capable of Focused Attention Memory Description: Grossly Intact Patient Reliability: Reliable Historian Fund of knowledge: Yes abstraction ability, Yes aware of current events Intelligence Estimate: Average Judgment: Good Insight: Full Hospital Course Hospital course: Mr. Simental is a 48 year old male who presented for suicidal thoughts and depression. His Wellbutrin was increased and when necessary Vistaril was used for anxiety and trazodone for insomnia.Patient was educated of diagnosis and the risk-benefit side effects of this alternative treatment options and was mo nitored for responsiveness and side effects. Mood anxiety sleep and appetite interest improved as did future orientation. Self-harm thoughts subsided, thinking was clear psychosis not present, and mood stabilized. He was future oriented and realizes how much of it hurt his children if he ever did harm himself. Patient was able to attend both individual and group therapy sessions as well as meet with the psychiatrist daily and urged to discuss any medication or treatment issues or other concerns. The patient was educated primarily by verbal means about their diagnosis and manifestations in their life. The option for treatment including group and individual therapy programming was offered to the patient in addition to the use of medications with all their potential risks, benefits, and side effects as well as the risks of not taking medication and non-adhereance were discussed with the patient at length. The patient was given the opportunity to ask questions and was noted to participate in the treatment in the planning process. The patient felt ready and eager to be discharged from the inpatient psychiatric unit to continue on with treatment as an outpatient. The patient agreed that is they were safe for this disposition. The patient was considered to be able to participate in informed consent and decision making with respect to medical, legal, and financial issues of the time of discharge. At the time of discharge the patient adamantly denied any concerns for lethality including suicidal or homicidal thoughts ideations or plans and was future oriented toward ongoing mental health care, medical follow- up and sobriety. Time spent discussing smoking cessation with patient: 3 to 10 minutes Does patient wish to continue nicotine replacement upon disc: No - Time Spent with Patient Total time spent providing and/or coordinating discharge services: 25 Less than 30 minutes Specific discharge activities: Interval history reviewed. Available labs reviewed . Psychotherapy provided. Patient had an opportunity to ask questions and address concerns. Patient was in agreement with the treatment plan. The risks benefits and side effects of medications were discussed with the patient, including alternatives and treatment. The patient was educated on the abstaining from any alcohol or illicit substances, following up with all scheduled appointments, and taking all medications as prescribed. Assessment and Plan - Patient/Caregiver Discharge Instructions Activity: resume usual activities as tolerated Diet: regular diet Additional Instructions: Continue current medications. Follow up with outpatient mental health. Encourage continued therapy in a group or individual setting. The patient was discharged to home. - Follow up Plan Follow up with: [facility] [Outside] Jese Ashton DO [Partnered Physician] - 04/11/19 3:00 pm (You have an appointment scheduled with your primary care provider Dr. Jese Ashton on Thursday, April 11, 2019 at 3:00 PM Please contact the office at the number above at least 24 hours in advance if you are unable to keep this appointment. ) Jaycee Hawk MD [Partnered Physician] - 04/06/19 8:00 am (You have an appointment scheduled with your Neurology provider Jaycee Hawk MD on Saturday, April 06, 2019 at 8:00 AM. Please contact the office at the number above at least 24 hours in advance if you are unable to keep this appointment. ) Functional capacity at discharge: independent ambulation Overall status at discharge: Stable Disposition: Home, Self-Care Quality - Multiple Antipsychotics Patient discharged on 2 or more antipsychotic medications: No Procedures - Procedures Procedures: Medication Management, Crisis Stabilization, Supportive Therapy, Group Therapy, Psychoeducational Therapy
[2019-03-29] MEDS: BuPROPion XL (24 HR) 150 MG TABLET PO SCH (08:53)
[2019-03-29 11:25] VITALS: BP 118/81
== END 2019-03-29 12:55 | disposition home or self-care (01) | DRG 751 ==
LOC: EMEROOARM 15:53 → 1ANU 18:24
PROVIDERS: ADMIT Psychiatry & Neurology Psychiatry; ATTEND Psychiatry & Neurology Psychiatry